=== PATIENT | male | born 1955 | race Caucasian/White ===

== ENCOUNTER 2016-11-28 07:04 | Day surgery (SDC) | payer BC ==
[2016-11-28] VITALS (7 sets, daily range): BP systolic 83–99; BP diastolic 51–66; PULSE 72–88; TEMP 97.6
[~2016-11-28 07:04] MED LIST: ALTACE 5MG5 MG PO; ASPIRIN E.C. 8181 MG PO; FLOMAX 0.40.4 MG/CAP PO; MAGNESIUM500 MG PO; MULTI VITAMINS1 TAB PO; PROAIR HFA0.09 MG/AC IH; VENIAFAXINE PO; VITAMIN D 1001000 IU PO; ZOCOR 40MG40 MG PO
[2016-11-28] MEDS ORDERED: PRILOSEC 20MG20 MG PO (07:55)
[2016-11-28] MEDS ORDERED: EFFEXOR 75M75 MG/TAB PO (07:56)
== END 2016-11-28 10:50 | disposition home or self-care (01) ==
LOC: SDCO 07:04
DX: Z12.11 Encounter for screening for malignant neoplasm of colon (principal); D12.0 Benign neoplasm of cecum; K57.30 Diverticulosis of large intestine without perforation or abscess without bleeding; K22.70 Barrett's esophagus without dysplasia; K21.0 Gastro-esophageal reflux disease with esophagitis; E78.00 Pure hypercholesterolemia, unspecified; F32.9 Major depressive disorder, single episode, unspecified; I10 Essential (primary) hypertension; K92.1 Melena
CPT/HCPCS: J2250; J2405; J3010; J7030

== ENCOUNTER 2019-02-02 08:00 | Outpatient (RCR) | payer BC ==
[~2019-02-02 08:00] MED LIST changes: +EFFEXOR 75M75 MG/TAB PO; +PRILOSEC 20MG20 MG PO
== END 2019-03-15 | disposition still patient (30) ==
LOC: MKS.ESL.PT
DX: M22.42 Chondromalacia patellae, left knee (principal)

== ENCOUNTER → 2020-03-13 | Outpatient (CLI) | payer BC | LOC: COL.RAD 14:27 | DX: Z01.812 Encounter for preprocedural laboratory examination (principal); R91.8 Other nonspecific abnormal finding of lung field; R06.02 Shortness of breath; R07.9 Chest pain, unspecified | CPT/HCPCS: Q9967 ==

== ENCOUNTER → 2020-04-16 | Outpatient (CLI) | payer BC | LOC: COL.RAD 07:45 | DX: Z01.812 Encounter for preprocedural laboratory examination (principal); Z86.16 Personal history of COVID-19 | CPT/HCPCS: Q9967 ==